=== PATIENT | female | born 1955 | race Caucasian/White ===

== ENCOUNTER 2017-07-03 14:52 | Emergency (ER) | payer MEDICARE ==
[2017-07-03 15:20] LABS: BASOPHILS 0.1 % (0-2); EOSINOPHILS 6.4 % (0-7); HEMATOCRIT 41.7 % (36.0-48.0); IMMATURE GRANULOCYTES 0.3 % (0-5); LYMPHOCYTES 18.6 % (15-50); MCH 29.3 pg (26.0-34.0); MCHC 33.6 g/dL (31.0-37.0); MCV 87.2 fL (80.0-100.0); MONOCYTES 8.6 % (2-11); PLATELET COUNT 185 10x3/uL (130-400); RBC 4.78 10x6/uL (4.00-5.40); RDW 12.7 % (11.5-14.5); WBC 10.5 10x3/uL (4.8-10.8)
[2017-07-03 15:47] LABS: ALBUMIN 3.9 g/dL (3.4-5.0); ALKALINE PHOSPHATASE 63 U/L (46-116); ALT (SGPT) 28 U/L (10-68); BILIRUBIN - TOTAL 0.48 mg/dL (0.2-1.3); CALC OSMOLALITY 276 mosm/kg (275-300); CALCIUM 9.1 mg/dL (8.5-10.1); CARBON DIOXIDE 29.4 mmol/L (21.0-32.0); CHLORIDE - SERUM 101 mmol/L (98-107); GLUCOSE 119 mg/dL (74-106); POTASSIUM - SERUM 3.8 mmol/L (3.5-5.1); PROTEIN - SERUM 7.6 g/dL (6.4-8.2); SODIUM 138 mmol/L (136-145); UREA NITROGEN 13 mg/dL (7-18); eGFR NON AFRICAN AMERICAN 60 mL/min (90-120)
[2017-07-03 16:05] LABS: CREATINE KINASE 286 UL (21-215); PRO BNP 74 pg/mL (0-125)
[2017-07-03 16:07] LABS: TROPONIN-I < 0.017 ng/mL (0.000-0.060)
[2017-07-03 16:31] LABS: CKMB 2.6 U/L (0.0-3.6)
[2017-07-20 13:24] VITALS: BMI 34.0
== END 2017-07-03 16:40 | disposition home or self-care (01) ==
LOC: D.ER 14:52 → EDSEX 14:52 → D.ER 16:40
PROVIDERS: Emergency Medicine
DX: J45.909 Unspecified asthma, uncomplicated (principal); I10 Essential (primary) hypertension

== ENCOUNTER 2017-07-20 01:16 | Inpatient (IN) | payer MEDICARE ==
[2017-07-20] VITALS (7 sets, daily range): BP systolic 116–163; BP diastolic 61–97; Ht 175.3 cm; Wt 104.5 kg
[~2017-07-20] VITALS: Ht 175.3 cm; Wt 104.5 kg
[2017-07-20 02:08] LABS: BASOPHILS 0.1 % (0-2); HEMATOCRIT 39.8 % (42.0-54.0); HEMOGLOBIN 13.4 g/dL (13.5-17.5); IMMATURE GRANULOCYTES 0.3 % (0-5); LYMPHOCYTES 14.7 % (15-50); MCH 29.1 pg (26.0-34.0); MCHC 33.7 g/dL (31.0-37.0); MCV 86.5 fL (80.0-100.0); MEAN PLATELET VOLUME 8.9 fL (7.4-10.4); MONOCYTES 9.5 % (2-11); NEUTROPHILS 60.4 % (40-80); PLATELET COUNT 219 10x3/uL (130-400); RDW 13.3 % (11.5-14.5)
[2017-07-20 02:16] LABS: INR 1.04 (0.85-1.17); PROTIME 13.2 SECONDS (11.6-15.0)
[2017-07-20 02:17] LABS: D-DIMER-QUANTITATIVE 0.42 ug/mLFEU (0.20-0.54)
[2017-07-20 02:23] LABS: ALBUMIN 3.9 g/dL (3.4-5.0); ALKALINE PHOSPHATASE 57 U/L (46-116); ALT (SGPT) 34 U/L (10-68); CALC OSMOLALITY 280 mosm/kg (275-300); CALCIUM 8.4 mg/dL (8.5-10.1); CHLORIDE - SERUM 103 mmol/L (98-107); GLUCOSE 87 mg/dL (74-106); POTASSIUM - SERUM 4.1 mmol/L (3.5-5.1); PROTEIN - SERUM 7.6 g/dL (6.4-8.2); SODIUM 140 mmol/L (136-145); UREA NITROGEN 22 mg/dL (7-18); eGFR NON AFRICAN AMERICAN 81 mL/min (90-120)
[2017-07-20 02:35] LABS: CKMB 7.1 U/L (0.0-3.6); CREATINE KINASE 644 UL (21-232); PRO BNP 94 pg/mL (0-125)
[2017-07-20 02:36] LABS: APPEARANCE CLEAR (CLEAR); BILIRUBIN NEGATIVE (NEGATIVE); COLOR YELLOW (YELLOW); GLUCOSE NEGATIVE (NEGATIVE); KETONE NEGATIVE (NEGATIVE); NITRITE NEGATIVE (NEGATIVE); PROTEIN NEGATIVE (NEGATIVE); SPECIFIC GRAVITY 1.015 (1.005-1.020); UROBILINOGEN NORMAL (NORMAL)
[2017-07-20 02:36] LABS: TROPONIN-I < 0.017 ng/mL (0.000-0.060)
[2017-07-20] MEDS ORDERED: OMEPRAZOLE20 M1 PO (03:31)
[2017-07-20] MEDS ORDERED: COZAAR50 MG PO (03:32)
[2017-07-20] MEDS ORDERED: PROZAC20 MG PO (03:33)
[2017-07-20] MEDS ORDERED: NORVASC10 MG PO (03:33)
[2017-07-20] MEDS ORDERED: MUCUS RELIEF400 MG PO (03:35)
[2017-07-20] MEDS ORDERED: ZITHROMAX500 MG PO (03:36)
[2017-07-20] MEDS ORDERED: VENTOLIN HFA18 GM INH (03:38)
[2017-07-21 04:22] LABS: BASOPHILS 0 % (0-2); EOSINOPHILS 0 % (0-7); HEMATOCRIT 40.3 % (42.0-54.0); HEMOGLOBIN 13.5 g/dL (13.5-17.5); IMMATURE GRANULOCYTES 0.3 % (0-5); LYMPHOCYTES 4.4 % (15-50); MCH 29.2 pg (26.0-34.0); MCHC 33.5 g/dL (31.0-37.0); MCV 87.2 fL (80.0-100.0); MEAN PLATELET VOLUME 9.1 fL (7.4-10.4); NEUTROPHILS 92.3 % (40-80); PLATELET COUNT 225 10x3/uL (130-400); RBC 4.62 10x6/uL (4.20-6.10); RDW 13.3 % (11.5-14.5)
[2017-07-21 04:45] LABS: ALBUMIN 3.8 g/dL (3.4-5.0); ANION GAP 15.3 mmol/L (8-16); BILIRUBIN - TOTAL 0.31 mg/dL (0.2-1.3); CALCIUM 8.7 mg/dL (8.5-10.1); CARBON DIOXIDE 25.5 mmol/L (21.0-32.0); CREATININE - SERUM 1.1 mg/dL (0.6-1.3); POTASSIUM - SERUM 3.8 mmol/L (3.5-5.1); PROTEIN - SERUM 7.8 g/dL (6.4-8.2)
[2017-07-21 07:42] VITALS: BP 139/68
[2017-07-21 12:24] VITALS: BP 143/77
[2017-07-21 12:45] VITALS: BP 143/70
[2017-07-21 15:35] VITALS: BP 134/64
[2017-07-21 20:38] VITALS: BP 114/49
[2017-07-21 23:47] VITALS: BP 121/61
[2017-07-22 04:00] VITALS: BP 146/86
[2017-07-22 05:29] LABS: BASOPHILS 0 % (0-2); EOSINOPHILS 0 % (0-7); HEMATOCRIT 37.6 % (42.0-54.0); HEMOGLOBIN 12.5 g/dL (13.5-17.5); IMMATURE GRANULOCYTES 0.4 % (0-5); LYMPHOCYTES 2.6 % (15-50); MCH 29.2 pg (26.0-34.0); MCHC 33.2 g/dL (31.0-37.0); MCV 87.9 fL (80.0-100.0); MEAN PLATELET VOLUME 8.9 fL (7.4-10.4); MONOCYTES 2.1 % (2-11); NEUTROPHILS 94.9 % (40-80); PLATELET COUNT 203 10x3/uL (130-400); RBC 4.28 10x6/uL (4.20-6.10); RDW 13.7 % (11.5-14.5); WBC 19.5 10x3/uL (4.8-10.8)
[2017-07-22 05:55] LABS: CALC OSMOLALITY 281 mosm/kg (275-300); CALCIUM 8.6 mg/dL (8.5-10.1); CARBON DIOXIDE 27.2 mmol/L (21.0-32.0); CHLORIDE - SERUM 104 mmol/L (98-107); CREATININE - SERUM 0.9 mg/dL (0.6-1.3); GLUCOSE 123 mg/dL (74-106); POTASSIUM - SERUM 4.1 mmol/L (3.5-5.1); SODIUM 139 mmol/L (136-145); eGFR NON AFRICAN AMERICAN > 90 mL/min (90-120)
[2017-07-22 05:56] LABS: UREA NITROGEN 22 mg/dL (7-18)
[2017-07-22 08:37] VITALS: BP 123/73
[2017-07-22 11:39] VITALS: BP 139/76
[2017-07-22 15:40] VITALS: BP 121/69
[2017-07-22 20:41] VITALS: BP 121/63
[2017-07-23] VITALS (8 sets, daily range): BP systolic 113–145; BP diastolic 65–80
[2017-07-23 04:26] LABS: BASOPHILS 0.1 % (0-2); EOSINOPHILS 0 % (0-7); HEMATOCRIT 39.1 % (42.0-54.0); HEMOGLOBIN 12.8 g/dL (13.5-17.5); IMMATURE GRANULOCYTES 0.3 % (0-5); LYMPHOCYTES 2.7 % (15-50); MCH 29.3 pg (26.0-34.0); MCHC 32.7 g/dL (31.0-37.0); MCV 89.5 fL (80.0-100.0); MEAN PLATELET VOLUME 9.5 fL (7.4-10.4); MONOCYTES 2.8 % (2-11); NEUTROPHILS 94.1 % (40-80); PLATELET COUNT 222 10x3/uL (130-400); RBC 4.37 10x6/uL (4.20-6.10); RDW 13.7 % (11.5-14.5); WBC 19.5 10x3/uL (4.8-10.8)
[2017-07-23 04:36] LABS: CALC OSMOLALITY 286 mosm/kg (275-300); CALCIUM 8.7 mg/dL (8.5-10.1); CARBON DIOXIDE 27.8 mmol/L (21.0-32.0); CHLORIDE - SERUM 105 mmol/L (98-107); CREATININE - SERUM 0.9 mg/dL (0.6-1.3); GLUCOSE 121 mg/dL (74-106); POTASSIUM - SERUM 4.4 mmol/L (3.5-5.1); SODIUM 141 mmol/L (136-145); UREA NITROGEN 26 mg/dL (7-18); eGFR NON AFRICAN AMERICAN > 90 mL/min (90-120)
[2017-07-23 15:17] LABS: IMMUNOGLOBULIN A 319 mg/dL (61-437); IMMUNOGLOBULIN G 1018 mg/dL (700-1600); IMMUNOGLOBULIN M 54 mg/dL (20-172)
[2017-07-24 00:44] VITALS: BP 154/74
[2017-07-24 04:00] VITALS: BP 155/74
[2017-07-24 04:09] LABS: BASOPHILS 0 % (0-2); EOSINOPHILS 0 % (0-7); HEMATOCRIT 38.8 % (42.0-54.0); HEMOGLOBIN 12.6 g/dL (13.5-17.5); IMMATURE GRANULOCYTES 0.4 % (0-5); LYMPHOCYTES 3.3 % (15-50); MCH 28.6 pg (26.0-34.0); MCHC 32.5 g/dL (31.0-37.0); MCV 88.2 fL (80.0-100.0); MEAN PLATELET VOLUME 9.3 fL (7.4-10.4); MONOCYTES 3.3 % (2-11); PLATELET COUNT 204 10x3/uL (130-400); RDW 13.8 % (11.5-14.5)
[2017-07-24 04:14] LABS: WBC 13.7 10x3/uL (4.8-10.8)
[2017-07-24 04:25] LABS: CALC OSMOLALITY 280 mosm/kg (275-300); CALCIUM 8.5 mg/dL (8.5-10.1); CARBON DIOXIDE 28.1 mmol/L (21.0-32.0); CHLORIDE - SERUM 103 mmol/L (98-107); GLUCOSE 106 mg/dL (74-106); SODIUM 139 mmol/L (136-145); UREA NITROGEN 21 mg/dL (7-18); eGFR NON AFRICAN AMERICAN 81 mL/min (90-120)
[2017-07-24] MEDS ORDERED: PREDNISONE20 MG PO (08:22)
[2017-07-24] MEDS ORDERED: IPRAT-ALBUT 0.5-3 ML INH (08:22)
[2017-07-24 08:39] VITALS: BP 143/78
[2017-07-24 13:12] VITALS: BP 164/87
[2017-07-28 03:10] LABS: IMMUNOGLOBULIN E 56 IU/mL (0-100)
== END 2017-07-24 16:26 | disposition home or self-care (01) | DRG 202 ==
LOC: EDSEX 01:16 → D.ER 01:16 → D.MS 03:10
PROVIDERS: Family Medicine; Internal Medicine Pulmonary Disease; Physician Assistant Medical
DX: J20.9 Acute bronchitis, unspecified (principal); J44.1 Chronic obstructive pulmonary disease with (acute) exacerbation; J44.0 Chronic obstructive pulmonary disease with (acute) lower respiratory infection; I10 Essential (primary) hypertension; J45.991 Cough variant asthma; F32.9 Major depressive disorder, single episode, unspecified; G47.33 Obstructive sleep apnea (adult) (pediatric); K21.9 Gastro-esophageal reflux disease without esophagitis; Z87.891 Personal history of nicotine dependence

== ENCOUNTER 2017-08-16 10:41 | Emergency (ER) | payer MEDICARE ==
[2017-07-20 13:24] VITALS: BMI 34.0
[~2017-08-16 10:41] MED LIST: COZAAR50 MG PO; IPRAT-ALBUT 0.5-3 ML INH; MUCUS RELIEF400 MG PO; NORVASC10 MG PO; OMEPRAZOLE20 M1 PO; PREDNISONE20 MG PO; PROZAC20 MG PO; VENTOLIN HFA18 GM INH; ZITHROMAX500 MG PO
[2017-08-16 11:27] LABS: BASOPHILS 0.2 % (0-2); EOSINOPHILS 15.4 % (0-7); HEMATOCRIT 36.3 % (42.0-54.0); HEMOGLOBIN 12.1 g/dL (13.5-17.5); IMMATURE GRANULOCYTES 1.1 % (0-5); LYMPHOCYTES 13.9 % (15-50); MCH 28.9 pg (26.0-34.0); MCHC 33.3 g/dL (31.0-37.0); MCV 86.8 fL (80.0-100.0); MEAN PLATELET VOLUME 8.4 fL (7.4-10.4); MONOCYTES 7.5 % (2-11); NEUTROPHILS 61.9 % (40-80); PLATELET COUNT 191 10x3/uL (130-400); RBC 4.18 10x6/uL (4.20-6.10); RDW 13.3 % (11.5-14.5); WBC 6.3 10x3/uL (4.8-10.8)
[2017-08-16 11:41] LABS: ALBUMIN 3.4 g/dL (3.4-5.0); ALKALINE PHOSPHATASE 58 U/L (46-116); ALT (SGPT) 29 U/L (10-68); BILIRUBIN - TOTAL 0.29 mg/dL (0.2-1.3); CALC OSMOLALITY 282 mosm/kg (275-300); CALCIUM 8.8 mg/dL (8.5-10.1); CARBON DIOXIDE 25.4 mmol/L (21.0-32.0); CHLORIDE - SERUM 103 mmol/L (98-107); CREATININE - SERUM 0.8 mg/dL (0.6-1.3); GLUCOSE 124 mg/dL (74-106); POTASSIUM - SERUM 3.6 mmol/L (3.5-5.1); SODIUM 140 mmol/L (136-145); UREA NITROGEN 21 mg/dL (7-18); eGFR NON AFRICAN AMERICAN > 90 mL/min (90-120)
== END 2017-08-16 13:58 | disposition home or self-care (01) ==
LOC: D.ER 10:41
PROVIDERS: Emergency Medicine
DX: J44.1 Chronic obstructive pulmonary disease with (acute) exacerbation (principal); I10 Essential (primary) hypertension

== ENCOUNTER → 2017-10-10 13:50 | Outpatient (CLI) | payer MEDICARE ==
[2017-07-20 13:24] VITALS: BMI 34.0
[~2017-10-10 13:50] MED LIST changes: +VIBRAMYCIN 100100 MG PO
== END | disposition home or self-care (01) ==
LOC: D.RT 13:50
DX: J44.1 Chronic obstructive pulmonary disease with (acute) exacerbation (principal); J84.9 Interstitial pulmonary disease, unspecified

== ENCOUNTER 2017-11-13 14:18 | Emergency (ER) | payer MEDICARE ==
[~2017-11-13] VITALS: Ht 175.3 cm; Wt 108.2 kg
[~2017-11-13 14:18] MED LIST changes: -VIBRAMYCIN 100100 MG PO
[2017-11-13 14:29] VITALS: Ht 175.3 cm; Wt 108.2 kg
[2017-11-13 15:08] LABS: BASOPHILS 0.2 % (0-2); EOSINOPHILS 12.8 % (0-7); HEMATOCRIT 39.7 % (42.0-54.0); HEMOGLOBIN 13.1 g/dL (13.5-17.5); IMMATURE GRANULOCYTES 0.4 % (0-5); LYMPHOCYTES 13.3 % (15-50); MCH 28.9 pg (26.0-34.0); MCV 87.6 fL (80.0-100.0); MEAN PLATELET VOLUME 8.8 fL (7.4-10.4); MONOCYTES 9.2 % (2-11); NEUTROPHILS 64.1 % (40-80); PLATELET COUNT 207 10x3/uL (130-400); RBC 4.53 10x6/uL (4.20-6.10); RDW 13.1 % (11.5-14.5); WBC 8.3 10x3/uL (4.8-10.8)
[2017-11-13 15:26] LABS: ALBUMIN 4.1 g/dL (3.4-5.0); ALKALINE PHOSPHATASE 61 U/L (46-116); ALT (SGPT) 36 U/L (10-68); BILIRUBIN - TOTAL 0.31 mg/dL (0.2-1.3); CALC OSMOLALITY 286 mosm/kg (275-300); CALCIUM 8.7 mg/dL (8.5-10.1); CARBON DIOXIDE 28.4 mmol/L (21.0-32.0); CHLORIDE - SERUM 106 mmol/L (98-107); CREATININE - SERUM 0.9 mg/dL (0.6-1.3); GLUCOSE 102 mg/dL (74-106); POTASSIUM - SERUM 3.8 mmol/L (3.5-5.1); PROTEIN - SERUM 7.6 g/dL (6.4-8.2); SODIUM 144 mmol/L (136-145); UREA NITROGEN 13 mg/dL (7-18); eGFR NON AFRICAN AMERICAN > 90 mL/min (90-120)
[2017-11-13 15:37] LABS: CKMB 4.3 U/L (0.0-3.6); CREATINE KINASE 590 UL (21-232)
[2017-11-13 15:40] LABS: TROPONIN-I < 0.017 ng/mL (0.000-0.060)
[2017-11-13] MEDS ORDERED: PREDNISONE20 MG PO (17:19)
[2017-11-13] MEDS ORDERED: VIBRAMYCIN 100100 MG PO (17:19)
[2017-11-13 18:44] VITALS: BP 165/91
== END 2017-11-13 18:45 | disposition home or self-care (01) ==
LOC: D.ER 14:18
PROVIDERS: Family Medicine
DX: J44.1 Chronic obstructive pulmonary disease with (acute) exacerbation (principal); I10 Essential (primary) hypertension; K21.9 Gastro-esophageal reflux disease without esophagitis

== ENCOUNTER 2020-08-07 09:40 | Emergency (ER) | payer OTHER ==
[~2020-08-07] VITALS: Ht 175.3 cm; Wt 104.5 kg
[~2020-08-07 09:40] MED LIST changes: +VIBRAMYCIN 100100 MG PO
[2020-08-07 10:12] VITALS: Ht 175.3 cm; Wt 104.5 kg
[2020-08-07] MEDS ORDERED: PROTONIX40 MG PO (10:17)
[2020-08-07] MEDS ORDERED: SYMBICORT 80-10.2 GM INH (10:17)
[2020-08-07 11:12] LABS: BASOPHILS 0.1 % (0-2); EOSINOPHILS 5.9 % (0-7); HEMOGLOBIN 12.5 g/dL (13.5-17.5); IMMATURE GRANULOCYTES 0.7 % (0-5); LYMPHOCYTE ABS# 1.13 10x3/uL (1.32-3.57); LYMPHOCYTES 16.6 % (15-50); MCH 29.1 pg (26.0-34.0); MCHC 32.9 g/dL (31.0-37.0); MCV 88.4 fL (80.0-100.0); MEAN PLATELET VOLUME 9.6 fL (7.4-10.4); MONOCYTES 8.7 % (2-11); NEUTROPHIL ABS# 4.63 10x3/uL (1.78-5.38); PLATELET COUNT 213 10x3/uL (130-400); WBC 6.8 10x3/uL (4.8-10.8)
[2020-08-07 11:30] LABS: CALC OSMOLALITY 280 mosm/kg (275-300); CALCIUM 8.6 mg/dL (8.5-10.1); CHLORIDE - SERUM 103 mmol/L (98-107); CREATININE - SERUM 0.9 mg/dL (0.6-1.3); GLUCOSE 104 mg/dL (74-106); POTASSIUM - SERUM 3.8 mmol/L (3.5-5.1); SODIUM 140 mmol/L (136-145); UREA NITROGEN 17 mg/dL (7-18); eGFR NON AFRICAN AMERICAN 90 mL/min (90-120)
[2020-08-07 11:37] LABS: ALBUMIN 3.8 g/dL (3.4-5.0); ALKALINE PHOSPHATASE 81 U/L (30-120); ALT (SGPT) 120 U/L (10-68); BILIRUBIN - TOTAL 0.45 mg/dL (0.2-1.3); C-REACTIVE PROTEIN 5.3 mg/dL (0.0-0.9); PROTEIN - SERUM 7.4 g/dL (6.4-8.2)
[2020-08-07 12:23] LABS: ERYTHROCYTE SEDIMENTATION RATE 18 mm/hr (0-20)
[2020-08-07 14:56] VITALS: BP 146/72
== END 2020-08-07 14:56 | disposition other institution (70) ==
LOC: D.ER 09:40
PROVIDERS: Family Medicine
DX: S81.832A Puncture wound without foreign body, left lower leg, initial encounter (principal); L03.116 Cellulitis of left lower limb; I10 Essential (primary) hypertension; J44.9 Chronic obstructive pulmonary disease, unspecified; W22.8XXA Striking against or struck by other objects, initial encounter; Y93.9 Activity, unspecified; Y92.9 Unspecified place or not applicable